=== PATIENT | male | born 1970 | race Caucasian/White ===

== ENCOUNTER 2017-10-11 07:48 | Day surgery (SDC) | payer MEDICAID ==
[~2017-10-11] VITALS: Ht 185.4 cm; Wt 94.8 kg
--- NOTE | ~2017-10-11 | OP ---
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 POSTOPERATIVE DIAGNOSES: Bilateral lower back and left lower quadrant abdominal lipomas. PROCEDURE: Excision of abdominal and bilateral lower back lipomas times 3. SURGEON: Viet Rooney MD REPORT OF PROCEDURE: The patient was placed in the right lateral decubitus position and the left flank/abdomen/lower back were all prepped and draped in sterile fashion. A skin incision was made overlying the mass on the left lateral abdomen. The total length of this incision was 1-1/2 cm. This was done in a transverse fashion. Electrocautery was used to dissect through the subcutaneous tissues and we encountered a small lipoma. This lipoma was about 1.5 cm in size and it was completely excised. The subcutaneous tissues were then reapproximated with interrupted 3-0 Vicryl and the skin was closed with running subcutaneous 5-0 Monocryl. The largest mass was on the left lower back. A 6 cm transverse incision was made overlying this mass. Electrocautery was used to dissect through the subcutaneous tissue down through Johnathon's until we encountered the lipoma. This lipoma was quite large and extended at least 6 cm in greatest diameter. This lipoma was completely excised and sent off for permanent specimen. We then treated area with electrocautery to stop any bleeding that was present. The subcutaneous tissues were then irrigated out and reapproximated with interrupted 3-0 Vicryl. The skin was then closed with running subcutaneous 5-0 Monocryl. The final lipoma was on the right lower back. A transverse 2.5 cm incision was made overlying this mass and again electrocautery was used to dissect down to the lipoma. A 2.5 cm lipoma was then excised. The subcutaneous tissues were reapproximated with interrupted 3-0 Vicryl and the skin was closed with running subcutaneous 5-0 Monocryl. A total of 10 mL of 0.25% Marcaine with epinephrine were infused into the surrounding tissues and the wounds were dressed appropriately. COMPLICATIONS: None. CONDITION: Stable. ANESTHESIA: General endotracheal and local. BLOOD LOSS: Minimal. TRANSINT:[id number] Voice Confirmation ID: [id number] DOCUMENT ID: [id number] OPERATIVE REPORT [id number] BC CHAMBERS CHRISTIAN MD at 0956 CC: KATIE PAYNE [phone] DICTATION DATE: 10/11/17 1132 [facility] HAND: 10/11/17 1149 [facility] 10/11/17 [place] [id number]
[~2017-10-11 07:48] MED LIST: HYDROCODONE-APA1 TAB PO; MULTIPLE VITAMI1 TA1 PO
[2017-10-11 08:40] LABS: BASOPHILS 0.6 % (0-2); EOSINOPHILS 4.7 % (0-7); HEMATOCRIT 46.6 % (42.0-54.0); HEMOGLOBIN 16.2 g/dL (13.5-17.5); LYMPHOCYTES 30.5 % (15-50); MCH 30.4 pg (26.0-34.0); MCHC 34.8 g/dL (31.0-37.0); MCV 87.4 fL (80.0-100.0); MEAN PLATELET VOLUME 11.4 fL (7.4-10.4); MONOCYTES 7.9 % (2-11); NEUTROPHILS 56.3 % (40-80); PLATELET COUNT 202 10x3/uL (130-400); RBC 5.33 10x6/uL (4.20-6.10); RDW 13.1 % (11.5-14.5); WBC 5.3 10x3/uL (4.8-10.8)
[2017-10-11] MEDS ORDERED: TESTOSTERON200 MG/ML IM (08:41)
[2017-10-11] MEDS ORDERED: FIBER-TABS625 MG PO (08:41)
[2017-10-11 08:48] LABS: ANION GAP 12.8 mmol/L (8-16); CALCIUM 8.9 mg/dL (8.5-10.1); CARBON DIOXIDE 27.1 mmol/L (21.0-32.0); CREATININE - SERUM 1.2 mg/dL (0.6-1.3); POTASSIUM - SERUM 3.9 mmol/L (3.5-5.1)
[2017-10-11 08:50] VITALS: BP 122/67; Ht 185.4 cm; Wt 94.8 kg
[2017-10-11] MEDS ORDERED: HYDROCODONE-APA1 TAB PO (11:27)
== END 2017-10-11 13:40 | disposition home or self-care (01) ==
LOC: D.OPS 07:48
PROVIDERS: Surgery
DX: D17.1 Benign lipomatous neoplasm of skin and subcutaneous tissue of trunk (principal); Z01.812 Encounter for preprocedural laboratory examination